=== PATIENT | female | born 1975 | race Caucasian/White ===

== ENCOUNTER 2020-10-22 07:51 | Outpatient (CLI) | payer OTHER, SELFPAY | END 2020-10-22 07:52 | disposition home or self-care (01) | LOC: ANHAUDIO 07:55 | PROVIDERS: PCP Internal Medicine; Visit Provider Nurse Practitioner Family | DX: H91.90 Unspecified hearing loss, unspecified ear (principal) | CPT/HCPCS: 92537; 92540; 92546; 92557; 92567 ==

== ENCOUNTER 2022-04-13 16:14 | Outpatient (CLI) | payer OTHER, SELFPAY ==
--- NOTE | ~2022-04-13 | MM_ITS ---
EXAMINATION: MM screening katrina BI w mirian HISTORY: Screening mammogram TECHNIQUE: Craniocaudal and mediolateral oblique 3-D tomosynthesis images were obtained and synthetic 2-D images were generated. CAD analysis was submitted and interpreted. COMPARISON: None, baseline BREAST PARENCHYMAL COMPOSITION: There are scattered areas of fibroglandular density. FINDINGS: RIGHT BREAST: There is a possible mass in the anterior third of the outer breast. LEFT BREAST: An asymmetry is present in the posterior third of the outer breast on the craniocaudal v iew. IMPRESSION: 1. Bilateral breast findings as described above. 2. Additional mammographic views and possible breast ultrasound are recommended. BI-RADS Category 0: Incomplete: Needs additional imaging evaluation. Reviewed, dictated and finalized at location A. IMPRESSION: 1. Bilateral breast findings as described above. 2. Additional mammographic views and possible breast ultrasound are recommended . BI-RADS Category 0: Incomplete: Needs additional imaging evaluation.
== END 2022-04-13 16:15 | disposition home or self-care (01) ==
PROVIDERS: PCP Internal Medicine; Visit Provider Student in an Organized Health Care Education/Training Program
DX: Z12.31 Encounter for screening mammogram for malignant neoplasm of breast (principal); R92.8 Other abnormal and inconclusive findings on diagnostic imaging of breast
CPT/HCPCS: 77063; 77067

== ENCOUNTER 2022-04-28 11:53 | Outpatient (CLI) | payer OTHER, SELFPAY ==
--- NOTE | ~2022-04-28 | MMUS_ITS ---
EXAMINATION: MM diagnostic katrina BI w mirian, US breast BI limited HISTORY: Follow-up bilateral breast asymmetries TECHNIQUE: Additional 3-D tomosynthesis images of the breasts were performed and synthetic 2-D images were generated. CAD analysis was submitted and interpreted. High resolution limited bilateral breast ultrasound was performed. COMPARISON: 04/13/2022 BREAST PARENCHYMAL COMPOSITION: Breast composed of scattered areas of fibroglandular density FINDINGS: MAMMOGRAPHIC FINDINGS: There are mildly prominent subareolar ducts of the right breast. There is a small focal mass in the u pper outer quadrant of the right breast anteriorly superimposed on a duct on the cc view. The focal a symmetry laterally in the left breast on CC view is less dense with spot compression views, most like ly superimposed fibroglandular tissue. No discrete mass or architectural distortion. ULTRASOUND: Limited right breast ultrasound: At 9:00 near the nipple there is a 4 mm cyst corresponding to the ma mmographic finding. No other masses are identified. No sonographic evidence for malignancy. Limited left breast ultrasound: Mildly prominent duct of the left breast at 2:00, 1 cm from the nippl e. No suspicious solid or cystic masses. IMPRESSION: 1. No evidence for malignancy in either breast. Benign findings. 2. Routine yearly screening mammogram and regular clinical breast examination are recommended. BI-RADS Category 2: Benign finding(s). Reviewed, dictated and finalized at location A. IMPRESSION: 1. No evidence for malignancy in either breast. Benign findings. 2. Routine yearly screening mammogram and regular clinical breast examination a re recommended. BI-RADS Category 2: Benign finding(s).
== END 2022-04-28 11:54 | disposition home or self-care (01) ==
PROVIDERS: PCP Internal Medicine; Visit Provider Student in an Organized Health Care Education/Training Program
DX: R92.8 Other abnormal and inconclusive findings on diagnostic imaging of breast (principal)
CPT/HCPCS: 76642; 77062; 77066; G0279

== ENCOUNTER 2022-12-23 13:05 | Outpatient (CLI) | payer OTHER, SELFPAY ==
--- NOTE | ~2022-12-23 | US_ITS ---
EXAMINATION: US pelvic complete w TV DATE: 12/23/2022 14:33 INDICATION: Pelvic and perineal pain Comparison:No prior studies for comparison. TECHNIQUE: Multiple transabdominal and endovaginal sonographic images of the pelvis performed. FINDINGS: The uterus measures 10.1 x 3.4 x 4.5 cm. The endometrial complex is not adequately visualiz ed for measurement. There are nabothian cysts. There is a large simple cyst of the right ovary measuring 11.5 x 8.1 x 8.5 cm. The right ovary measur es 11.3 x 8.2 x 9.3 cm. The left ovary is not visualized. There is no free fluid in the pelvis. There are no abnormal masses seen on either side. IMPRESSION: 1. Large simple cyst of the right ovary measuring up to 11.5 cm. Differential diagnosis includes larg e functional cyst, serous cystadenoma/cystadenocarcinoma. Recommend follow-up ultrasound in 4-6 weeks to assess for resolution. Reviewed, dictated and finalized at location A. IMPRESSION: 1. Large simple cyst of the right ovary measuring up to 11.5 cm. Differential d iagnosis includes large functional cyst, serous cystadenoma/cystadenocarcinoma. Recommend follow-up ultrasound in 4-6 weeks to assess for resolution.
== END 2022-12-23 13:06 | disposition home or self-care (01) ==
PROVIDERS: PCP Internal Medicine; Visit Provider Obstetrics & Gynecology
DX: R10.2 Pelvic and perineal pain (principal); N83.201 Unspecified ovarian cyst, right side
CPT/HCPCS: 76830; 76856

== ENCOUNTER 2022-12-27 14:04 | Outpatient (CLI) | payer OTHER, SELFPAY ==
[2022-12-30 04:28] LABS: CA-125 4 U/mL (<35)
== END 2022-12-27 14:05 | disposition home or self-care (01) ==
LOC: ANHLAB 14:05
PROVIDERS: PCP Internal Medicine; Visit Provider Obstetrics & Gynecology
DX: N83.209 Unspecified ovarian cyst, unspecified side (principal)
CPT/HCPCS: 36415; 86304

== ENCOUNTER 2023-01-26 02:03 | Day surgery (SDC) | payer OTHER, SELFPAY ==
[2023-01-21 13:25] VITALS: BMI 37.8
--- NOTE | 2023-01-21 13:26 | PC.NURSE ---
Report to the Outpatient Waiting Room, entrance under the green pavilion located off [facility], at time _0900_ on date _01/26/23_. Planned Procedure Time: _1100. Time changes happen often and if your time is changed the preop area will call you the afternoon before. - You and your visitor will be asked to self-screen and do not enter if you have any COVID symptoms. - A mask is optional within the hospital at this time. Patients may have clear liquids (water, carbonated beverages, clear teas, apple juice) until 3 hours prior to surgery with a maximum of 20 ounces. - No food from midnight until time of surgery - Infants may have breast milk until 4 hours before surgery, formula 6 hours prior to surgery. - Children will be allowed to drink immediately following surgery. If applicable, please bring a bottle or sippy cup to assist with drinking. Juice, water, soda, and popsicles are readily available. For infants on formula, please bring formula the day of surgery. Pacifiers are allowed. Take the following medications with a SIP of water the morning of surgery: NONE DO NOT STOP ANY OF YOUR OTHER PRESCRIPTION MEDICATIONS PRIOR TO SURGERY ?EXCEPT THE FOLLOWING Medications to discontinue per physician IBUPROFEN Date to take last dose 1 WEEK PRIOR PER SURGEON INSTRUCTIONS Please no make-up, nail libyan, hairspray, perfume, deodorant, or body powder the day of surgery. No jewelry (including any body piercings) or valuables the day of surgery, leave them at home. Please take a shower or bath the night before, or the morning of, surgery with an antibacterial soap. Wear comfortable, loose fitting clothing. Children are encouraged to wear pajamas. - Jewelry must be removed prior to entering the operating room. Rings and piercings that are not removed may be cut off. - The hospital will not accept responsibility for valuables. - Please leave all valuables, including medications, at home the day of surgery. If you are going home after surgery, a licensed ambulette driver must drive you home. - NO public transportation without another adult if you receive anesthesia. - We recommend that an adult stay with you for 24 hours following discharge. - We also recommend that you do not drive, make important decision, drink alcoholic beverages, or take any drugs that were not prescribed by your health care provider for at least 24 hours after your discharge time. For Pediatric surgeries, we recommend two adults accompany the child home. Follow any additional instructions given to you from your surgeon. If you or anyone in your household have experienced Covid symptoms in the past week, please notify your surgeon or the nurse liaison at the phone number below for possible testing. Telephone instructions given to PATIENT_and asked if any additional questions and then verbalized understanding. Patient advised to call surgeon office or pre surgery nurse liaison [phone] if any additional questions.
[2023-01-26] VITALS (11 sets, daily range): BP systolic 100–139; BP diastolic 56–70; PULSE 49–73; RESP 12–20; TEMP 36.3; O2SAT 98–100
--- NOTE | 2023-01-26 09:17 | PM.IMHP ---
H&P: HPI History of Present Illness Date/Time: 01/26/23 09:17 Chief Complaint: Pelvic pain/ovarian cyst Narrative: She is a 47 y/o prior btl with complaints of lower abdominal pain. On exam there was pelvic fullness. Ultrasound showed 11cm simple right ovarian cyst which comprises the whole ovary. Normal Ca125. She was recommended for laparoscopic removal. She is aware that usually with a cyst of that size the ovary, no identifiable normal ovarian tissue on ultrasound, and also the fallopian tube will be attached to mass. She was made aware of decreased risk of ovarian cancer with bilateral salpingectomy and wants both fallopian tubes removed. Review of Systems Review of Systems: All systems reviewed & are unremarkable except as noted in HPI and below Constitutional: Constitutional: Reports no additional constitutional complaints Eyes: Eyes: Reports no additional eye complaints Cardiovascular: Cardiovascular: Reports no additional cardiovascular complaints Respiratory: Respiratory: Reports no additional respiratory complaints Gastrointestinal: Gastrointestinal: Reports no additional gastrointestinal complaints Genitourinary: Genitourinary: Reports no additional female genitourinary complaints and Reports as per HPI Integumentary/Breasts: Skin/Breast: Reports system reviewed and no additional complaints, except as docu Neurologic: Reports system reviewed and no additional complaints, except as documented Psychiatric: Psychiatric: Reports no additional psychiatric complaints Hematologic/Lymphatic: Hematologic/Lymphatic: Reports no additional hematologic/lymphatic complaints [facility] Past Medical History Medical History delivery delivered Cholecystectomy planned History of miscarriage Surgical History Surgical History H/O tubal ligation History of appendectomy [place] teeth removed Social History Social History Smoking packs per day: 1 Smoking cigarettes per day: 20.0 Years smoked: 15 Smoking pack-years: 15.00 Smoking status: Former smoker Tobacco type: e-cigarettes/vaping Additional smoking assessment comments: 1 YR SEVERAL TIMES A WEEK Alcohol intake: current Alcohol use details: SOCIAL OCCASIONS Substance use: never Living arrangements: with family Meds Home Medications and Allergies Home Medications Medication Instructions Recorded Confirmed Type tramadol 50 mg tablet 50 mg PO Q6H PRN Pain 10/19/21 01/21/23 History estradiol-norethindrone acet 0.5 1 tablet PO DAILY #84 tabs 08/10/22 01/21/23 Rx mg-0.1 mg tablet nystatin-triamcinolone 100,000 1 applic topical BID PRN affected 01/19/23 01/21/23 Rx unit/g-0.1 % topical cream area #15 grams ibuprofen 600 mg tablet 600 mg PO Q6H PRN Pain 01/21/23 01/21/23 History Allergies Allergy/AdvReac Type Severity Reaction Status Date / Time No Known Allergies Allergy Verified 01/21/23 13:15 Exam Const: General: comfortable and no acute distress Orientation/consciousness: oriented to person, oriented to place and oriented to time Eyes: General: appearance normal, both eyes and all related structures Neck: Neck: normal visual inspection Resp: Effort & Inspection: normal respiratory effort Auscultation: clear to auscultation bilaterally Cardio: Rate: regular rate Rhythm: regular rhythm GI: Inspection: normal to inspection GI Palp: Yes abdominal tenderness Other: lower abdominal tenderness fullness palpated : External Female Exam: normal external appearance Speculum Exam - Vagina: normal appearance of the vagina Speculum Exam - Cervix: normal appearance of the cervix Bimanual exam- vagina & uterus: uterine mobility normal, uterine shape normal and non-tender Bimanual Exam- Adnexa, other: tender and Adnexal mass present (right ) Sk
--- NOTE | 2023-01-26 09:25 | WPDHPUPDATE1 ---
History and Physical Update Update Date/Time: 01/26/23 09:25 History and Physical has been reviewed, including an updated exam of the patient. There are NO changes in the patient's condition. Risks, benefits, and alternatives have been discussed and questions answered. Patient agrees to proceed with procedure.
--- NOTE | 2023-01-26 09:44 | WPDANESEPPF ---
Anes - Initial Pre Proc Eval Procedure: Operation Date: 01/26/23 11:00 Proposed Procedures p Laparoscopic Right Ovarian Cystectomy, Possible Bilateral Salpingectomy - Mack Mart MD Date/Time: 01/26/23 09:44 Surgeon: Mack Mart MD Pre Op Diagnosis: Ovarian Cyst Patient Data Age: 47 Gender: F Height: 1.63 m Weight: 100 kg Allergies Allergy/AdvReac Type Severity Reaction Status Date / Time No Known Allergies Allergy Verified 01/26/23 09:41 Home Medications Medication Instructions Recorded Confirmed Type tramadol 50 mg tablet 50 mg PO Q6H PRN Pain 10/19/21 01/26/23 History estradiol-norethindrone acet 0.5 1 tablet PO DAILY #84 tabs 08/10/22 01/26/23 Rx mg-0.1 mg tablet nystatin-triamcinolone 100,000 1 applic topical BID PRN affected 01/19/23 01/26/23 Rx unit/g-0.1 % topical cream area #15 grams ibuprofen 600 mg tablet 600 mg PO Q6H PRN Pain 01/21/23 01/26/23 History Patient hx anesthesia problems: none Family hx anesthesia problems: none Results Review: All pre-operative results and documents have been reviewed as part of the pre-operative evaluation. [facility] Past Medical History Medical History delivery delivered Cholecystectomy planned History of miscarriage Surgical History Surgical History H/O tubal ligation History of appendectomy [place] teeth removed Social History Social History Smoking packs per day: 1 Smoking cigarettes per day: 20.0 Years smoked: 15 Smoking pack-years: 15.00 Smoking status: Former smoker Tobacco type: e-cigarettes/vaping Additional smoking assessment comments: 1 YR SEVERAL TIMES A WEEK Alcohol intake: current Alcohol use details: SOCIAL OCCASIONS Substance use: never Living arrangements: with family Anes - Eval Final PreProcedure Day of Procedure 01/26/23 09:44 Patient weight: obese Heart: regular rate and rhythm Lungs: clear to auscultation Airway: Mallampati scale class III Neurological: alert and oriented Last oral intake: >/= 8 hours ASA classification: III Emergent: no Anesthetic plan: proceed Anesthesia type and monitoring: general ETT and standard monitoring Results Review: All pre-operative results and documents have been reviewed as part of the pre-operative evaluation. Informed Consent: The patient's anesthetic plan and its attendant risks and benefits were discussed with the patient/family/POA. Questions were solicited and answers provided to the satisfaction of the patient/family/POA.
[2023-01-26] MEDS: ACETAMINOPHEN 500 MG TABLET 1000 MG PO (09:47)
[2023-01-26] MEDS: LACTATED RINGERS 1,000 ML 30 ML IV CONT ×2 (09:50→12:44)
[2023-01-26] MEDS: KETOROLAC 15 MG/ML VIAL (*BKC) IV PUSH (09:53)
[2023-01-26] MEDS: BUPivacaine HCL 0.5% 10 ML AMP 20 ML INFILTRATE (10:56)
[2023-01-26] MEDS: ceFAZolin SODIUM 1 GM VIAL IV PUSH (11:15)
--- NOTE | 2023-01-26 13:21 | W.PM.PROC2 ---
Procedure Note - Detailed Date of Procedure 01/26/23 Pre-op Diagnosis Ovarian Cyst Post-op Diagnosis Other (Left ovarian cyst 2. Pelvic adhesions ) Procedure Performed Laparoscopic removal of left ovarian cyst. Surgeon Mack Mart MD Anesthesia General Indications Patient with abdominal pain and ultrasound showed large 11 cm cyst normal CA 125 she was recommended for removal due to the discomfort and the size of the cyst. Findings The uterus was severely adhesed all of the fundal part of the uterus was adhesed to the anterior lower abdomen. There is evidence of bilateral tubal ligation. There were several areas of hernias in the abdominal wall. They did not in close any intestinal tissue. There was some adhesions of the omentum to the anterior abdominal wall in the middle. This did not interfere with visualization of the pelvis. The distal fallopian tubes were noted to be adhesed to the anterior abdominal wall on the right the right ovary appeared mostly atrophic and a small cyst. The left ovary was noted to be in the cul-de-sac and had the large cyst that was retracted to the cul-de-sac into the right. The fallopian tube was around this cyst. The distal fallopian tube was adhesed to the anterior abdominal wall near the adhesed uterus. Description of Procedure After informed consent was obtained patient was taken to operating room and adequate general endotracheal anesthesia was administered she was placed in low lithotomy position. An exam under anesthesia was performed and the mass was palpated to the middle and right. The uterus palpated to be fixed anteriorly and the cervix also felt small and fixed to the anterior upper vagina. Due to the position of the cervix then the manipulator was not inserted. A Keith drain reservoir was attached to a ring forceps was inserted into the vagina to help elevate it the pelvic tissues. The bladder was drained of 50 cc of yellow urine. Attention was turned to the abdomen. 0.5% Marcaine was injected at the umbilical area and a horizontal incision was made with the scalpel. S retractors were used to retract the subcutaneous tissue. The anterior fascia was grabbed and incised. The posterior fascia was grabbed and the peritoneum was entered. The fascial edges were secured with 0 Vicryl suture. There was some adhesions superior to the incision of the omentum. The Hysson 10 mm port was inserted. And was secured with the fascial sutures. A pneumoperitoneum of 15 mm per mercury was obtained. She was placed in Trendelenburg position. Attention was turned to the left side of the abdomen in an area that did not have any scar tissue 0.5% Marcaine was injected subcutaneously an incision was made and a 5 mm port was inserted under laparoscopic visualization. Attention was turned to the right side of the abdomen and 0.5% Marcaine injected and a 5 mm port was inserted under laparoscopic visualization. A needle aspirated was inserted into the cyst and clear fluid was removed a small amount. Approximately 200 cc. This did not remove most of the fluid in the cyst. But it did decompress it enough to then ligate the fallopian tube and ovary with the LigaSure. Attempted to put the specimen in the Endo-Catch bag but it was too large to fit in the bag. The specimen was then cut and surface opening extended with the scissors to extend the opening to the ovary and more fluid was removed. At this time the cyst and fallopian tube were able to be put into the Endo-Catch back. This Endo-Catch bag was removed through the umbilical port. The umbilical port was placed back into the abdomen the pelvis was visualized and the area was noted to be hemostatic. The ports were removed the pneumoperitoneum was released she was taken out of Trendelenburg position the fascia was is were approximated with an additional stitch of 0 Vicryl. The skin incisions were closed in a subcuticular fashion with 4-0 Vicryl and Dermabond was placed.
[2023-01-26] MEDS: fentaNYL CITRATE INJ (*CRX) 100 MCG/2 ML VIAL 25 MCG IV PUSH ×2 (13:31→13:33)
[2023-01-26] MEDS: ONDANSETRON INJ 4 MG/2 ML VIAL IV PUSH (14:05)
[2023-01-26] MEDS: oxyCODONE HCL (*CRX) 5 MG TAB IR PO (14:46)
--- NOTE | 2023-01-26 15:17 | SUR.PHASEII ---
1455: Discharge instructions reviewed with patient and family. Patient stated that hydrocodone makes her stomach hurt . Dr. Mart's office called for request in change of pain medications called in to patient's pharmacy. Betsy at Dr. Mart's office stated that she will have Dr. Mart call this RN after the meeting she is in currently. Will await md phone call.
== END 2023-01-26 15:30 | disposition home or self-care (01) ==
PROVIDERS: PCP Internal Medicine; Visit Provider Obstetrics & Gynecology
PROC: (CPT 49320; principal; 2023-01-26 11:00)
DX: D27.1 Benign neoplasm of left ovary (principal); Z87.891 Personal history of nicotine dependence
CPT/HCPCS: 58661; 88305; A9270; J0330; J0690; J1100; J1885; J2250; J2405; J2704; J2710; J3010; J7030; J7120

== ENCOUNTER 2023-02-15 14:57 | Outpatient (CLI) | payer OTHER, SELFPAY ==
[2023-02-20 06:33] LABS: FSH 38.9 mIU/mL (***)
== END 2023-02-15 14:58 | disposition home or self-care (01) ==
PROVIDERS: PCP Internal Medicine; Visit Provider Obstetrics & Gynecology
DX: N95.0 Postmenopausal bleeding (principal)
CPT/HCPCS: 36415; 83001

== ENCOUNTER 2024-01-07 09:39 | Outpatient (CLI) | payer OTHER, SELFPAY ==
--- NOTE | ~2024-01-07 | US_ITS ---
EXAMINATION: US venous doppler LE BI DATE: 01/07/2024 10:07 INDICATION: EDEMA OF LE BI . TECHNIQUE: Grayscale images without and with compression and Doppler images of the bilateral lower ex tremity veins were obtained. COMPARISON: None FINDINGS: The right common femoral vein, profunda (deep) femoral vein, femoral vein, popliteal vein, peroneal v ein, posterior tibial veins, gastrocnemius vein, and greater saphenous vein are patent. The left common femoral vein, profunda (deep) femoral vein, femoral vein, popliteal vein, peroneal v ein, posterior tibial veins, gastrocnemius vein, and greater saphenous vein are patent. IMPRESSION: Patent bilateral lower extremity veins. No evidence of deep venous thrombosis. Reviewed, dictated and finalized at location K.
== END 2024-01-07 09:40 | disposition home or self-care (01) ==
LOC: ANHIMG 09:42
PROVIDERS: PCP Internal Medicine; Visit Provider Internal Medicine
DX: R60.0 Localized edema (principal)
CPT/HCPCS: 93970